=== PATIENT | female | born 2005 | race Caucasian/White ===

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

== ENCOUNTER 2023-03-31 07:05 | Emergency (ER) | payer BC, MEDICAID, OTHER ==
[~2023-03-31] VITALS: Ht 154.9 cm; Wt 72.6 kg
[2023-03-31] MEDS ORDERED: IV NORMAL SALINE 1000 ML BAG IV ONE (07:15)
[2023-03-31 07:36] LABS: BASOPHILS # (AUTO) 0.1 K/UL (0.0-0.2); BASOPHILS % (AUTO) 0.4 % (0.0-2.0); EOSINOPHILS % (AUTO) 0.3 % (0.0-7.0); HEMATOCRIT 41.7 % (31.2-41.9); LYMPHOCYTES # (AUTO) 2.3 K/uL (0.8-4.8); LYMPHOCYTES % (AUTO) 17.7 % (20.5-74.5); MEAN CORPUSCULAR HEMOGLOBIN 27.5 uug (24.7-32.8); MEAN CORPUSCULAR HGB CONC 34 g/dL (32.3-35.6); MEAN CORPUSCULAR VOLUME 82.1 fL (75.5-95.3); MONOCYTES # (AUTO) 0.6 K/uL (0.1-1.30); MONOCYTES % (AUTO) 4.5 % (0-11); NEUTROPHILS # (AUTO) 10.1 K/uL (1.8-8.9); NEUTROPHILS % (AUTO) 77.1 % (31.5-64.5); PLATELET COUNT (AUTO) 333 K/uL (179-408); RED BLOOD CELL COUNT(AUTO) 5.08 MIL/uL (3.63-4.92); RED CELL DISTRIBUTION WIDTH 12.3 % (12.3-17.7); WHITE BLOOD COUNT (AUTO) 13.2 K/uL (3.8-11.8)
[2023-03-31 07:43] LABS: DIFFERENTIAL COMMENT 1
[2023-03-31] MEDS ORDERED: ONDANSETRON 4 MG/2 ML VIAL ONE (07:44)
[2023-03-31] MEDS ORDERED: LIDOCAINE VISCUS 2% 15 ML UDC ONE (07:45)
[2023-03-31] MEDS ORDERED: LIDOCAINE VISCUS 2% 15 ML UDC MM ONE (07:45)
[2023-03-31] MEDS ORDERED: MAG HYDROX/AL HYDROX/SIMETH 30 ML LIQUID UDC PO ONE (07:45)
[2023-03-31] MEDS ORDERED: MORPHINE SULFATE 4 MG/1 ML DISP.SYRIN IV ONE ×2 (07:45→09:45)
[2023-03-31] MEDS ORDERED: ONDANSETRON 4 MG/2 ML VIAL IV ONE (07:45)
[2023-03-31] MEDS ORDERED: MAG HYDROX/AL HYDROX/SIMETH 30 ML LIQUID UDC ONE (07:45)
[2023-03-31] MEDS ORDERED: FAMOTIDINE. 20 MG/2 ML VIAL IV ONE ×2 (07:45)
[2023-03-31] MEDS ORDERED: MORPHINE SULFATE 4 MG/1 ML DISP.SYRIN ONE ×2 (08:01→09:35)
[2023-03-31 08:03] LABS: CALCIUM 8.9 mg/dL (8.5-10.1); CREATININE 0.6 mg/dL (0.6-1.3); POTASSIUM 3.4 mmol/L (3.5-5.1)
[2023-03-31 08:06] LABS: ALBUMIN 4.2 g/dL (3.4-5.0); BILIRUBIN,DIRECT 0.1 mg/dL (0.0-0.2); BILIRUBIN,TOTAL 0.4 mg/dL (0.2-1.0)
[2023-03-31 08:35] LABS: *BILIRUBIN,URIN NEGATIVE (NEGATIVE); *CLARITY,URINE CLEAR (CLEAR); *COLOR,URINE YELLOW (YELLOW); *KETONES,URINE 4+ (NEGATIVE); *PROTEIN,URINE TRACE (NEGATIVE); *UROBILINOGEN,URINE 0.2 E.U./dl (NORMAL); LEUKOCYTE ESTERASE ,URINE NEGATIVE (NEGATIVE); NITRITE, URINE NEGATIVE (NEGATIVE); UGLUCOSE NEGATIVE (NEGATIVE)
[2023-03-31 08:43] LABS: *BLOOD, URINE TRACE (NEGATIVE)
[2023-03-31 08:44] LABS: *URINE HCG, QUAL NEGATIVE (NEGATIVE)
[2023-03-31 09:30] LABS: WBC,URINE 0-3 /HPF (0-3)
[2023-03-31 09:31] LABS: BACTERIA,URINE MANY /HPF (NONE SEEN); SQUAMOUS EPITHELIAL CELL,UR MANY /HPF (NONE SEEN)
[2023-03-31] MEDS ORDERED: FAMO-132 PO (11:18)
[2023-03-31] MEDS ORDERED: ONDA4TAB5 PO (11:18)
[2023-03-31] MEDS ORDERED: HYDR-4209 PO (11:18)
[2023-03-31 11:47] VITALS: BP 129/71; TEMP 98.2; O2SAT 98
== END 2023-03-31 11:48 | disposition home or self-care (01) ==
LOC: ER 07:05
DX: R10.11 Right upper quadrant pain (principal); R11.2 Nausea with vomiting, unspecified; R10.2 Pelvic and perineal pain
CPT/HCPCS: 99285; 96374; 76705; 96361; 96375; 80076; 80048; 81001; 84703; 83690; 85025; 36415; 96376; J3490; J2405; J2270 ×2; J7040; A4606; A4663

== ENCOUNTER 2023-11-15 21:20 | Emergency (ER) | payer OTHER ==
[~2023-11-15] VITALS: Ht 154.9 cm; Wt 72.6 kg
[~2023-11-15 21:20] MED LIST: FAMO-132 PO; HYDR-4209 PO; ONDA4TAB5 PO
[2023-11-15 21:24] VITALS: O2SAT 98
[2023-11-15 22:36] LABS: *BILIRUBIN,URIN NEGATIVE (NEGATIVE); *CLARITY,URINE CLEAR (CLEAR); *COLOR,URINE YELLOW (YELLOW); *KETONES,URINE NEGATIVE (NEGATIVE); *PROTEIN,URINE NEGATIVE (NEGATIVE); *URINE HCG, QUAL NEGATIVE (NEGATIVE); *UROBILINOGEN,URINE 0.2 E.U./dl (NORMAL); LEUKOCYTE ESTERASE ,URINE NEGATIVE (NEGATIVE); NITRITE, URINE NEGATIVE (NEGATIVE); PH,URINE 6.5 (5.0-8.0); UGLUCOSE NEGATIVE (NEGATIVE)
[2023-11-15 22:37] LABS: *BLOOD, URINE TRACE (NEGATIVE)
[2023-11-15 22:47] LABS: BACTERIA,URINE FEW /HPF (NONE SEEN); RBC,URINE 0-3 /HPF (0-3)
[2023-11-15 22:48] LABS: SQUAMOUS EPITHELIAL CELL,UR MODERATE /HPF (NONE SEEN)
[2023-11-15 22:52] LABS: HIV-1 p24 ANTIGEN NON REACTIVE (NONREACTIVE); HIV-1/2 ANTIBODY NON REACTIVE (NONREACTIVE)
[2023-11-15] MEDS ORDERED: LIDOCAINE HCL 1% 20 ML VIAL ONE (22:53)
[2023-11-15] MEDS: CEFTRIAXONE 500 MG VIAL IM ONE (22:55)
[2023-11-15] MEDS ORDERED: METR-147 PO (22:58)
[2023-11-15] MEDS ORDERED: DOXY-326 PO (22:58)
[2023-11-15] MEDS ORDERED: HYDR7GEL RC (22:58)
[2023-11-18 07:10] LABS: *CHLAMYDIA NAA Negative (Negative); *GC NAA Negative (Negative); *TRIC.VAG. NAA Negative (Negative)
== END 2023-11-15 23:20 | disposition home or self-care (01) ==
LOC: ER 21:26
DX: K64.4 Residual hemorrhoidal skin tags (principal); N76.6 Ulceration of vulva; N76.0 Acute vaginitis; R10.2 Pelvic and perineal pain; R03.0 Elevated blood-pressure reading, without diagnosis of hypertension; Z79.891 Long term (current) use of opiate analgesic; Z79.899 Other long term (current) drug therapy
CPT/HCPCS: 99284; 86592; 81001; 87806; 84703; 87210; 36415; 96372; 87491; J0696; J3490; A4606; A4663

== ENCOUNTER 2024-10-27 22:29 | Emergency (ER) | payer OTHER ==
[~2024-10-27] VITALS: Ht 154.9 cm; Wt 79.4 kg
[~2024-10-27 22:29] MED LIST changes: +DOXY-326 PO; +HYDR7GEL RC; +METR-147 PO
[2024-10-27 23:42] LABS: PLATELET COUNT (AUTO) 360 K/uL (179-408); RED BLOOD CELL COUNT(AUTO) 4.97 MIL/uL (3.63-4.92); RED CELL DISTRIBUTION WIDTH 12.6 % (12.3-17.7); WHITE BLOOD COUNT (AUTO) 9.8 K/uL (3.8-11.8)
[2024-10-27 23:51] LABS: CREATININE 0.6 mg/dL (0.6-1.3); SODIUM SERUM 137 mmol/L (136-145); UREA NITROGEN, BLOOD 8 mg/dL (7-18)
[2024-10-27 23:56] LABS: ASPARTATE AMINOTRANSFERASE 5 U/L (15-37); TOTAL PROTEIN, SERUM 7.3 g/dL (6.4-8.2)
[2024-10-28] MEDS ORDERED: HYDROCODONE/APAP 5-325MG TABLET ONE (00:09)
[2024-10-28] MEDS: HYDROCODONE/APAP 5-325MG TABLET PO ONE (00:11)
[2024-10-28 00:24] VITALS: BP 119/80
[2024-10-28 01:18] LABS: *BILIRUBIN,URIN NEGATIVE (NEGATIVE); *BLOOD, URINE 3+ (NEGATIVE); *CLARITY,URINE CLEAR (CLEAR); *COLOR,URINE YELLOW (YELLOW); *KETONES,URINE NEGATIVE (NEGATIVE); *PROTEIN,URINE NEGATIVE (NEGATIVE); *UROBILINOGEN,URINE 0.2 E.U./dl (NORMAL); LEUKOCYTE ESTERASE ,URINE NEGATIVE (NEGATIVE); NITRITE, URINE NEGATIVE (NEGATIVE); UGLUCOSE NEGATIVE (NEGATIVE)
[2024-10-28 01:20] LABS: *URINE HCG, QUAL NEGATIVE (NEGATIVE)
[2024-10-28 01:28] LABS: SQUAMOUS EPITHELIAL CELL,UR FEW /HPF (NONE SEEN)
[2024-10-28] MEDS ORDERED: PRED50TA PO (01:45)
[2024-10-28] MEDS ORDERED: HYDR-3972 PO (01:45)
[2024-10-28] MEDS ORDERED: TRIA80OI TP (01:47)
[2024-10-28 02:00] VITALS: BP 123/80; O2SAT 98
== END 2024-10-28 02:01 | disposition home or self-care (01) ==
LOC: ER 22:41
DX: D69.0 Allergic purpura (principal); R22.43 Localized swelling, mass and lump, lower limb, bilateral; M79.605 Pain in left leg; M79.604 Pain in right leg; Z79.52 Long term (current) use of systemic steroids
CPT/HCPCS: 99283; 80076; 80048; 85025; 84145; 85651; 85730; 87040 ×2; 36415; 83605; 81001; 84703; 87086; J7512; A4606; A4663